=== PATIENT | male | born 1950 | race Caucasian/White ===

== ENCOUNTER 2020-06-21 11:00 | Emergency (ER) | payer MEDICARE, SELFPAY ==
[2020-06-21] VITALS (16 sets, daily range): BP systolic 122–155; BP diastolic 68–89; PULSE 98–126; RESP 15–23; TEMP 37.1; O2SAT 90–99
--- NOTE | ~2020-06-21 | XR_ITS ---
EXAMINATION: XR chest 1V portable DATE: 06/21/2020 11:59 INDICATION: Chest pain. Shortness of breath. TECHNIQUE: A single frontal view of the chest was obtained on 2 radiographs. COMPARISON: Chest single view 06/21/2013 FINDINGS: There is mild atelectasis in right mid and lower lung zones. No pleural effusion or pneumot horax. The heart size is normal. Median sternotomy wires and mediastinal surgical clips are seen, lik ishan from prior coronary artery bypass grafting. There is a left chest pacer/defibrillator with lead i n right atrium. Calcified right hilar lymph nodes are consistent with old granulomatous disease. IMPRESSION: 1. Mild atelectasis in right mid and lower lung zones. Reviewed, dictated and finalized at location A. [facility]
--- NOTE | 2020-06-21 11:10 | ECG_ITS ---
Measurements Intervals [place] Rate: 121 P: 156 OK: 188 QRS: 121 QRSD: 172 T: -25 QT: 386 QTc: 549 Interpretive Statements SUPRAVENTRICULAR TACHYCARDIA, CONSIDER ATRIAL TACHYCARDIA RIGHT AXIS DEVIATION RIGHT BUNDLE BRANCH BLOCK HIGH LATERAL INFARCT, AGE INDETERMINATE BASELINE ARTIFACT- I, II, AVR ABNORMAL ECG Electronically Signed On 06-21-2020 12:20:30 PROGRESS CLERK by Reen De Paz D.O.
--- NOTE | 2020-06-21 11:25 | PC.NURSE ---
pt sent to [facility]- sending us a report in 15-20min. via fax machine.
[2020-06-21 11:39] LABS: Basophils Absolute Auto 0.1 K/mm3 (0.0-0.1); Basophils Percent Auto 0.5 % (0.2-1.2); Eosinophils Absolute Auto 0.1 K/mm3 (0-0.3); Hematocrit 41.6 % (42.0-52.0); Hemoglobin 14.3 g/dL (14.0-18.0); Immature Granulocyte Absolute 0.06 K/mm3 (0.00-0.031); Immature Granulocyte Percent A 0.6 % (0-0.5); Lymphocytes Absolute Auto 1.86 K/mm3 (0.9-3.2); Lymphocytes Percent Auto 19.4 % (18.3-44.2); Mean Corpuscular HGB Conc 34.4 g/dl (32-36); Mean Corpuscular Hemoglobin 30.8 pg (26-34); Mean Corpuscular Volume 89.5 fl (80-100); Mean Platelet Volume 10.7 fl (7.4-10.4); Monocytes Absolute Auto 0.6 K/mm3 (0.1-0.6); Monocytes Percent Auto 6.4 % (2.6-8.5); Neutrophils Absolute Auto 6.9 K/mm3 (1.3-6.7); Neutrophils Percent Auto 72.1 % (45.5-73.1); Platelet Count Result 222 k/mm3 (150-375); Red Blood Count 4.65 M/mm3 (4.6-6.20); Red Cell Distribution Width 13.8 % (11.5-14.5); White Blood Count 9.6 K/mm3 (4.5-10.0)
--- NOTE | 2020-06-21 11:45 | ED.GENADULT ---
HPI - General Adult General Chief complaint: Unspecified Stated complaint: possible heart attack Time Seen by Provider: 06/21/20 11:09 History of Present Illness HPI narrative: Patient is a 69-year-old gentleman who presents to emergency department with chief complaint of AICD fired. Patient has history of congestive heart failure and is followed at [facility] by cardiology. Patient states today he carried some water into his house from his car. Patient states that after he did this his AICD fired and it fired 6 more times. Patient states that now he is feeling much better and feels back to his baseline. Related Data Home Medications Medication Instructions Recorded Confirmed atorvastatin 40 mg PO DAILY 06/21/20 glimepiride 2 mg PO BID 06/21/20 lisinopril 10 mg PO BID 06/21/20 metformin 2,000 mg PO QID 06/21/20 spironolactone 25 mg PO DAILY 06/21/20 Allergies Allergy/AdvReac Type Severity Reaction Status Date / Time No Known Allergies Allergy Verified 06/21/20 11:15 Review of Systems Review of Systems: Narrative: A 10 system review of systems was completed on the patient and is negative except for what is stated in the HPI. Nursing and ancillary documentation was reviewed. PMFSH Comments Past medical history significant for congestive heart failure atrial fibrillation Surgical history patient has an AICD Social history the patient denies illicit drug use Exam Narrative: Exam Narrative: GENERAL: Well-appearing, well-nourished, and in no acute distress. HEAD: Normocephalic, atraumatic. EYES: PERRLA and EOMI. ENT: Nares clear, no rhinorrhea or epistaxis. Mucous membranes moist. NECK: Supple. CHEST: Clear to auscultation. No respiratory distress. HEART: Regular rate and rhythm. No murmur heard. Normal peripheral pulses. ABDOMEN: Soft, nontender, nondistended, normal active bowel sounds. EXTREMITIES: Normal range of motion. No edema. SKIN: Warm, dry, no rash. NEURO: No focal deficits. Alert and oriented x3. PSYCH: Normal mood and affect. Course Course Emergency Course: EKG shows sinus tachycardia with a rate of [address] elevations. Patient is primarily followed at [facility] for his cardiology care. Dr. Aguilar was supersonic engineer and was discussed the case with. When advised of the results of the inquiry to the patient's defibrillator she wanted the patient transferred to their facility immediately. Currently an ICU bed is being opened up for the patient. Vital Signs Vital signs: Vital Signs Temperature 37.1 C 06/21/20 11:02 Pulse Rate 121 H 06/21/20 11:02 Respiratory Rate 22 H 06/21/20 11:02 Blood Pressure 155/80 H 06/21/20 11:02 Pulse Oximetry 95 06/21/20 11:02 Temperature 37.1 C 06/21/20 11:02 Pulse Rate 112 H 06/21/20 12:31 Respiratory Rate 16 06/21/20 12:45 Blood Pressure 128/68 06/21/20 12:31 Pulse Oximetry 99 06/21/20 12:45 Medical Decision Making Vital Signs Vital Signs: Vital Signs Temperature 37.1 C 06/21/20 11:02 Pulse Rate 121 H 06/21/20 11:02 Respiratory Rate 22 H 06/21/20 11:02 Blood Pressure 155/80 H 06/21/20 11:02 Pulse Oximetry 95 06/21/20 11:02 Temperature 37.1 C 06/21/20 11:02 Pulse Rate 112 H 06/21/20 12:31 Respiratory Rate 16 06/21/20 12:45 Blood Pressure 128/68 06/21/20 12:31 Pulse Oximetry 99 06/21/20 12:45 Lab Data Result diagrams: 06/21/20 11:31 06/21/20 11:31 Labs: Lab Results 06/21/20 06/21/20 06/21/20 Range/Units 11:31 11:31 11:31 WBC 9.6 (4.5-10.0) K/mm3 RBC 4.65 (4.6-6.20) M/mm3 Hgb 14.3 (14.0-18.0) g/dL Hct 41.6 L (42.0-52.0) % MCV 89.5 (80-100) fl MCH 30.8 (26-34) pg MCHC 34.4 (32-36) g/dl RDW 13.8 (11.5-14.5) % Plt Count 222 (150-375) k/mm3 MPV 10.7 H (7.4-10.4) fl Immature Gran % (Auto) 0.6 H (0-0.5) % Neut % (Auto) 72.1 (45.5-73.1) % Lymph % (Auto
[2020-06-21 11:50] LABS: INR 1.2; Prothrombin Time 16.1 Seconds (11.1-14.7)
[2020-06-21 11:53] LABS: Alanine Aminotransferase 22 U/L (4-50); Albumin Level 4.4 g/dL (3.5-5.1); Alkaline Phosphatase 100 U/L (38-126); Anion Gap 12 mmol/L (8-16); Aspartate Amino Transferase 26 U/L (17-59); Bilirubin,Total 0.5 mg/dL (0.2-1.3); Blood Urea Nitrogen 18 mg/dL (9-20); Calcium 8.8 mg/dL (8.4-10.2); Carbon Dioxide 26 mmol/L (22-30); Chloride 97 mmol/L (98-107); Estimated CRCL calculation 81 ml/min; Estimated Glomerular Filt Rate > 60; Glucose 243 mg/dL (75-110); Magnesium 0.7 mg/dL (1.6-2.3); Potassium 5.4 mmol/L (3.4-5.0); Sodium 135 mmol/L (137-145)
[2020-06-21 11:56] LABS: Lactic Acid Reflex 4.8 mmol/L (0.7-2.1)
[2020-06-21] MEDS: SODIUM CHLORIDE 0.9% IV 1,000 ML 999 ML IV CONT (12:05)
[2020-06-21 12:07] LABS: NT Pro B Type Natriuretic Pept 377 PG/ML (5-100); Troponin I 0.089 ng/mL (0.000-0.034)
[2020-06-21 14:37] LABS: Reflex Lactic Acid Yes or No Add Lactic
[2020-06-21 15:16] LABS: Lactic Acid 3.5 mmol/L (0.7-2.1)
== END 2020-06-21 16:23 | disposition short-term general hospital (02) ==
PROVIDERS: Emergency Provider Emergency Medicine; PCP Registered Nurse
DX: I49.01 Ventricular fibrillation (principal); Z95.810 Presence of automatic (implantable) cardiac defibrillator; I48.91 Unspecified atrial fibrillation; Z79.84 Long term (current) use of oral hypoglycemic drugs; I47.1 Supraventricular tachycardia; I45.10 Unspecified right bundle-branch block; R94.31 Abnormal electrocardiogram [ECG] [EKG]
CPT/HCPCS: 36415; 71045; 80053; 83605; 83735; 83880; 84484; 85025; 85610; 85730; 87040; 93005; 96360; 99285; J7030